=== PATIENT | male | born 1960 | race Caucasian/White ===

== ENCOUNTER 2023-06-08 12:17 | Emergency (ER) | payer OTHER, SELFPAY ==
[2023-06-08] VITALS (11 sets, daily range): BP systolic 167–186; BP diastolic 100–105; PULSE 62–73; RESP 13–18; TEMP 36.6; O2SAT 98–99; BMI 25.7
--- NOTE | 2023-06-08 12:40 | DI.RAD.S_ITS ---
PROCEDURE: XR CHEST 1V INDICATIONS: chest pain TECHNIQUE: One view of the chest was acquired. COMPARISON: None. FINDINGS: Surgical changes and devices: Mitral valve replacement noted Lungs and pleura: Lungs are clear. No pleural effusions or pneumothorax. Mediastinum: Mediastinal contours appear normal. Heart size is normal. Bones and chest wall: No suspicious bony lesions. Overlying soft tissues appear unremarkable. IMPRESSION: No acute cardiopulmonary findings Approved by: Archie Holt M.D. on 06/08/2023 at 12:49
[2023-06-08 13:06] LABS: Add Manual Diff / Slide Review NO; Basophils Absolute Auto 0 /uL (0-100); Basophils Percent Auto 0.4 % (0-2); Eosinophils Absolute Auto 100 /uL (0-450); Eosinophils Percent Auto 1.8 % (2-4); Hematocrit 43.4 % (41-53); Hemoglobin 14.8 g/dL (13.5-17.5); Lymphocytes Absolute Auto 1500 /uL (1100-4500); Lymphocytes Percent Auto 25.9 % (25-40); Mean Corpuscular Hemoglobin 31.3 PG (26-34); Mean Corpuscular Volume 91.9 fL (80-100); Monocytes Absolute Auto 700 /uL (0-900); Monocytes Percent Auto 11.1 % (3-14); Neutrophils Absolute Auto 3600 /uL (1500-7000); Neutrophils Percent Auto 60.8 % (50-75); Platelet Count 147 X10^3/uL (150-400); Red Blood Cell Count 4.72 X10^6/uL (4.5-5.9); Red Cell Distribution Width 13.5 % (11.6-14.8)
[2023-06-08 13:08] LABS: INR 1.1 (0.9-1.3)
[2023-06-08 13:11] LABS: PTT Partial Thromboplastin Tim 29 SECONDS (26-36)
[2023-06-08 13:12] LABS: Alanine Aminotransferase 20 IU/L (<50); Albumin 4.1 g/dL (3.5-5.0); Albumin Globulin Ratio 1.5 (1.0-2.8); Alkaline Phosphatase 54 U/L (38-126); Aspartate Aminotransferase 28 IU/L (17-59); Bilirubin Total 1.1 mg/dL (0.2-1.3); Blood Urea Nitrogen 11 mg/dL (9-20); Calcium 9.3 mg/dL (8.4-10.2); Carbon Dioxide 28 mmol/L (22-32); Chloride 103 mmol/L (98-107); Creatine Kinase 101 U/L (55-170); Estimated Glomerular Filt Rate > 60 mL/min (>60); Globulin 2.8 g/dL (1.7-4.1); Glucose 78 mg/dL (80-110); HEMOLYSIS < 15 (0-50); Lipase 70 U/L (23-300); Potassium 3.9 mmol/L (3.4-5.1); Sodium 138 mmol/L (137-145); Total Protein 6.9 g/dL (6.3-8.2)
[2023-06-08 13:23] LABS: D Dimer 724 ng/ml (<500)
[2023-06-08 13:24] LABS: Troponin I < 0.012 ng/mL (0.01-0.034)
[2023-06-08 13:58] LABS: NT-proBNP (BNP-Adult 18+) 112 pg/mL (<125)
--- NOTE | 2023-06-08 14:21 | ED_ITS ---
HPI - Syncope General Chief Complaint: Syncope Stated Complaint: passed out last night, tightness in chest Time Seen by Provider: 06/08/23 12:19 Source: patient and family Mode of arrival: Ambulatory Limitations: no limitations History of Present Illness HPI narrative: 62-year-old male with history of hypertension and leaky mitral valve repaired 3 days ago. Patient states he has had 4 or 5 separate episodes where he passes out about an hour prior to arrival while flying on an airplane. Typically eats for a few seconds but his states yesterday it was for 1-2 minutes about an hour prior to arrival and is always on descent. Patient's member service representative is aware and they tried to have a Holter monitor or ZIO patch while he was flying but it malfunctioned and were unsuccessful during that is light although during that flight it did not occur. Patient states he always has a sensation like he is going to pass out occurs usually very brief. He states he still felt a little bit off the last day since occurred. He states he just does not feel great. He he states he is got no cold cough or congestion, no fevers or chills. He states no new chest pain. He states it is always a little bit of mild chest discomfort post surgically close to his thoracotomy scar which has been a little bit stronger today. He denies any shortness of breath he denies any syncope in other episodes accept after he had his hip replacement while seated. Patient denies any nausea or vomiting. No diarrhea constipation, no loss of bowel or bladder control. Some chronic mild bilateral lower extremity swelling that he describes as very mild. He wears compression stockings daily for this. Patient states he had his mitral valve repair, he follows with Cardiology regularly and had an echo about 3 months ago. They told him that they are still very small or mild amount of week but that is improved since priors. His only other medication is lisinopril daily. No aspirin or other thinners. Denies other surgeries besides IM nail for his femur fracture. He states he had a framing nail that went through the femur causing it to fracture. Patient states no known drug allergies. No tobacco, has a craft beer once daily, no illicit. Primary care is in [place]. His member service representative is Dr. Le at [facility] in [place]. Patient and flew out here yesterday when this occurred for his daughter's wedding on [place]. Related Data Home Medications Medication Instructions Recorded Confirmed lisinopril 10 mg tablet 10 mg PO DAILY 02/19/22 02/19/22 Allergies Allergy/AdvReac Type Severity Reaction Status Date / Time No Known Drug Allergies Allergy Verified 06/08/23 12:36 Review of Systems Review of Systems ROS Unobtainable: All systems reviewed & are unremarkable except as noted in HPI and below Patient History Social History Smoking Status: Never smoker Smoking Status: Never smoker alcohol intake frequency: 0-2 drinks per day Alcohol type: beer Substance Use Type: marijuana Exam Narrative Exam Narrative: GENERAL: Alert and oriented x three, thin, well-appearing male in no acute distress. Patient had just ambulated back into the room. HEENT: Head normocephalic, atraumatic, EOMI, pupils reactive, face symmetric, moist mucous membranes NECK: Supple, full range of motion CARDIOVASCULAR: Regular rate and rhythm without murmurs, rubs or gallops. No JVD. Trace edema bilaterally. RESPIRATORY: Breath sounds equal bilaterally, no wheezes rales or rhonchi. No tachypnea or accessory muscle use. Speaks in full sentences. ABDOMEN: Soft, nontender. No pulsatile mass or bruit. Normoactive bowel sounds all 4 quadrants. No guarding or rebound, rigidity, no mass : No CVA tenderness EXTREMITIES: Normal range of motion, no clubbing or edema. Neurovascularly intact NEUROLOGICAL: Cranial nerves II through XII grossly intact. Moving all extremities SKIN: Warm, dry, no petechiae, no rashes or lesions. Initial Vital Signs Initial Vital Signs: Vital Signs Temperature 97.9 F 06/08/23 12:29 Pulse Rate 65 06/08/23 12:29 Respiratory Rate 18 06/08/23 12:29 Blood Pressure 167/103 H 06/08/23 12:29 Pulse Oximetry 99 06/08/23 12:29 Oxygen Delivery Method Room Air 06/08/23 12:29 Course Orders Ordered: ED Orders 06/08/23 10:50 Trop I [Troponin I] Stat 06/08/23 12:40 XR chest 1V Stat EKG-12 Lead Stat 06/08/23 12:50 Complete Blood Count AUTO DIFF Stat Comprehensive Metabolic Panel Stat ETOH [Ethanol (ETOH)] Stat Lipase Stat Magnesium Stat PTT Partial Thromboplastin Deven Stat Prothrombin Time INR Stat Troponin & CK Cardiac Panel Stat 06/08/23 13:06 BNP [NT-proBNP (BNP-Adult 18+)] Stat D Dimer Stat 06/08/23 14:33 CT angio chest PE protocol Stat 06/08/23 15:00 Urine Drug Screen, Rapid Stat Discontinued Medications Aspirin (Aspirin 81 Mg Chew Tab) 324 mg PO NOW ONE Stop: 06/08/23 12:41 Last Admin: 06/08/23 13:08 Dose: Not Given Documented By: NR Vital Signs Vital signs: Vital Signs - 8 hr 06/08/23 12:29 06/08/23 13:07 06/08/23 13:30 Temperature 97.9 F Pulse Rate 65 69 69 Respiratory Rate 18 14 Blood Pressure 167/103 H Pulse Oximetry 99 99 98 Oxygen Delivery Method Room Air 06/08/23 14:00 06/08/23 15:00 06/08/23 15:30 Temperature Pulse Rate 73 71 66 Respiratory Rate 13 14 14 Blood Pressure Pulse Oximetry 98 Oxygen Delivery Method Room Air 06/08/23 16:00 06/08/23 16:24 06/08/23 16:25 Temperature Pulse Rate 72 73 Respiratory Rate 15 15 Blood Pressure 180/100 H Pulse Oximetry Oxygen Delivery Method 06/08/23 16:30 06/08/23 16:31 06/08/23 16:31 Temperature Pulse Rate 73 62 Respiratory Rate Blood Pressure 186/105 H Pulse Oximetry 99 99 Oxygen Delivery Method Room Air MDM - Syncope Lab Data 06/08/23 12:50 06/08/23 12:50 Labs: Lab Results 06/08/23 06/08/23 06/08/23 Range/Units 10:50 12:50 12:50 WBC 6.0 (4.5-11.0) X10^3/uL RBC 4.72 (4.5-5.9) X10^6/uL Hgb 14.8 (13.5-17.5) g/dL Hct 43.4 (41-53) % MCV 91.9 (80-100) fL MCH 31.3 (26-34) PG MCHC 34.0 (30-36) % RDW 13.5 (11.6-14.8) % Plt Count 147 L (150-400) X10^3/uL Neut % (Auto) 60.8 (50-75) % Lymph % (Auto) 25.9 (25-40) % [place] % (Auto) 11.1 (3-14) % Eos % (Auto) 1.8 L (2-4) % Baso % (Auto) 0.4 (0-2) % Neut # (Auto) 3600 (2136-5941) /uL Lymph # (Auto) 1500 (3763-6034) /uL [place] # (Auto) 700 (0-900) /uL Eos # (Auto) 100 (0-450) /uL Baso # (Auto) 0 (0-100) /uL PT 13.0 H (10.1-12.7) SECONDS INR 1.1 (0.9-1.3) APTT 29 (26-36) SECONDS D-Dimer (<500) ng/ml Sodium (137-145) mmol/L Potassium (3.4-5.1) mmol/L Chloride (98-107) mmol/L Carbon Dioxide (22-32) mmol/L BUN (9-20) mg/dL Creatinine (0.66-1.25) mg/dL Estimated GFR (>60) mL/min BUN/Creatinine Ratio (6-22) Glucose (80-110) mg/dL Calcium (8.4-10.2) mg/dL Magnesium (1.6-2.3) mg/dL Total Bilirubin (0.2-1.3) mg/dL AST (17-59) IU/L ALT (<50) IU/L Alkaline Phosphatase (38-126) U/L Total Creatine Kinase (55-170) U/L Troponin I < 0.012 (0.01-0.034) ng/mL NT-Pro-B Natriuret Pep (<125) pg/mL Total Protein (6.3-8.2) g/dL Albumin (3.5-5.0) g/dL Globulin (1.7-4.1) g/dL Albumin/Globulin Ratio (1.0-2.8) Lipase (23-300) U/L U Opiates 300ng/mL cut (Negative) Ur Oxycodone Screen (Negative) Urine Methadone Screen (Negative) Ur Barbiturates Screen (Negative) U Tricyclic Antidepress (Negative) Ur Phencyclidine Scrn (Negative) Ur Amphetamines Screen (Negative) U Methamphetamines Scrn (Negative) Ur MDMA Scrn (Ecstasy) (Negative) U Benzodiazepines Scrn (Negative) Urine Cocaine Screen (Negative) U Marijuana (THC) Screen (Negative) Ethyl Alcohol ( - 10) mg/dL 06/08/23 06/08/23 06/08/23 Range/Units 12:50 12:50 13:06 WBC (4.5-11.0) X10^3/uL RBC (4.5-5.9) X10^6/uL Hgb (13.5-17.5) g/dL Hct (41-53) % MCV (80-100) fL MCH (26-34) PG MCHC (30-36) % RDW (11.6-14.8) % Plt Count (150-400) X10^3/uL Neut % (Auto) (50-75) % Lymph % (Auto) (25-40) % [place] % (Auto) (3-14) % Eos % (Auto) (2-4) % Baso % (Auto) (0-2) % Neut # (Auto) (3607-2839) /uL Lymph # (Auto) (2042-2990) /uL [place] # (Auto) (0-900) /uL Eos # (Auto) (0-450) /uL Baso # (Auto) (0-100) /uL PT (10.1-12.7) SECONDS INR (0.9-1.3) APTT (26-36) SECONDS D-Dimer 724 H (<500) ng/ml Sodium 138 (137-145) mmol/L Potassium 3.9 (3.4-5.1) mmol/L Chloride 103 (98-107) mmol/L Carbon Dioxide 28 (22-32) mmol/L BUN 11 (9-20) mg/dL Creatinine 0.61 L (0.66-1.25) mg/dL Estimated GFR > 60 (>60) mL/min BUN/Creatinine Ratio 18.0 (6-22) Glucose 78 L (80-110) mg/dL Calcium 9.3 (8.4-10.2) mg/dL Magnesium 2.0 (1.6-2.3) mg/dL Total Bilirubin 1.1 (0.2-1.3) mg/dL AST 28 (17-59) IU/L ALT 20 (<50) IU/L Alkaline Phosphatase 54 (38-126) U/L Total Creatine Kinase 101 (55-170) U/L Troponin I < 0.012 (0.01-0.034) ng/mL NT-Pro-B Natriuret Pep (<125) pg/mL Total Protein 6.9 (6.3-8.2) g/dL Albumin 4.1 (3.5-5.0) g/dL Globulin 2.8 (1.7-4.1) g/dL Albumin/Globulin Ratio 1.5 (1.0-2.8) Lipase 70 (23-300) U/L U Opiates 300ng/mL cut (Negative) Ur Oxycodone Screen (Negative) Urine Methadone Screen (Negative) Ur Barbiturates Screen (Negative) U Tricyclic Antidepress (Negative) Ur Phencyclidine Scrn (Negative) Ur Amphetamines Screen (Negative) U Methamphetamines Scrn (Negative) Ur MDMA Scrn (Ecstasy) (Negative) U Benzodiazepines Scrn (Negative) Urine Cocaine Screen (Negative) U Marijuana (THC) Screen (Negative) Ethyl Alcohol < 10 ( - 10) mg/dL 06/08/23 06/08/23 Range/Units 13:06 15:00 WBC (4.5-11.0) X10^3/uL RBC (4.5-5.9) X10^6/uL Hgb (13.5-17.5) g/dL Hct (41-53) % MCV (80-100) fL MCH (26-34) PG MCHC (30-36) % RDW (11.6-14.8) % Plt Count (150-400) X10^3/uL Neut % (Auto) (50-75) % Lymph % (Auto) (25-40) % [place] % (Auto) (3-14) % Eos % (Auto) (2-4) % Baso % (Auto) (0-2) % Neut # (Auto) (1430-1052) /uL Lymph # (Auto) (9508-2702) /uL [place] # (Auto) (0-900) /uL Eos # (Auto) (0-450) /uL Baso # (Auto) (0-100) /uL PT (10.1-12.7) SECONDS INR (0.9-1.3) APTT (26-36) SECONDS D-Dimer (<500) ng/ml Sodium (137-145) mmol/L Potassium (3.4-5.1) mmol/L Chloride (98-107) mmol/L Carbon Dioxide (22-32) mmol/L BUN (9-20) mg/dL Creatinine (0.66-1.25) mg/dL Estimated GFR (>60) mL/min BUN/Creatinine Ratio (6-22) Glucose (80-110) mg/dL Calcium (8.4-10.2) mg/dL Magnesium (1.6-2.3) mg/dL Total Bilirubin (0.2-1.3) mg/dL AST (17-59) IU/L ALT (<50) IU/L Alkaline Phosphatase (38-126) U/L Total Creatine Kinase (55-170) U/L Troponin I (0.01-0.034) ng/mL NT-Pro-B Natriuret Pep 112 (<125) pg/mL Total Protein (6.3-8.2) g/dL Albumin (3.5-5.0) g/dL Globulin (1.7-4.1) g/dL Albumin/Globulin Ratio (1.0-2.8) Lipase (23-300) U/L U Opiates 300ng/mL cut Negative (Negative) Ur Oxycodone Screen Negative (Negative) Urine Methadone Screen Negative (Negative) Ur Barbiturates Screen Negative (Negative) U Tricyclic Antidepress Negative (Negative) Ur Phencyclidine Scrn Negative (Negative) Ur Amphetamines Screen Negative (Negative) U Methamphetamines Scrn Negative (Negative) Ur MDMA Scrn (Ecstasy) Negative (Negative) U Benzodiazepines Scrn Negative (Negative) Urine Cocaine Screen Negative (Negative) U Marijuana (THC) Screen Negative (Negative) Ethyl Alcohol ( - 10) mg/dL Imaging Data Chest x-ray: Radiologist's Impression: Close Chest CTA 06/08/23 Chest X-Ray (Signed) Archie Holt - 06/08/[address] [address] XRay Report Signed Patient: Rinku Regan MR#: [id number] : 1960 Acct:[id number] Age/Sex: 62 / M Date of Service: 06/08/23 Loc: ED Accession Number: [id number] ?? Procedure: XR chest 1V Ordering Provider: Brea Birch D.O. PROCEDURE:? XR CHEST 1V ? INDICATIONS:? chest pain ? TECHNIQUE:? One view of the chest was acquired.? ? COMPARISON:? None. ? FINDINGS:? ? Surgical changes and devices:? Mitral valve replacement noted ? Lungs and pleura:? Lungs are clear.? No pleural effusions or pneumothorax.? ? Mediastinum:? Mediastinal contours appear normal.? Heart size is normal.? ? Bones and chest wall:? No suspicious bony lesions.? Overlying soft tissues appear unremarkable.? ? ? IMPRESSION:? No acute cardiopulmonary findings ? ? ? Approved by: Archie Holt M.D. on 06/08/2023 at 12:49? CT scan - chest: Radiologist's Impression: [place] [address] CT Scan Report Signed Patient: Rinku Regan MR#: [id number] : 1960 Acct:[id number] Age/Sex: 62 / M Date of Service: 06/08/23 Loc: ED Accession Number: [id number] ?? Procedure: CT angio chest PE protocol Ordering Provider: Brea Birch D.O. PROCEDURE:? CT ANGIO CHEST PE PROTOCOL ? INDICATIONS:? syncope, happens when he is on descent on airplanes. multi ? TECHNIQUE:? After the administration of intravenous contrast, 2 mm thick sections acquired from the pulmonary apices to the posterior costophrenic angles.? 3-dimensional maximum intensity projection (MIP) coronal and sagittal reformats were then acquired through the thorax.? For radiation dose reduction, the following was used:? automated exposure control, adjustment of mA and/or kV according to patient size.? ? COMPARISON:? None. ? FINDINGS:? Image quality:? Excellent.? ? Pulmonary arteries:? Pulmonary arteries are normal in size, and demonstrate no intraluminal filling defects to suggest central pulmonary embolism.? ? Lungs and pleura:? Lungs are clear.? No pleural effusions or pneumothorax.? Central and peripheral airways are patent.? ? Mediastinum:? Heart size is normal, without pericardial effusion.? No mediastinal or hilar adenopathy.? Thoracic aorta is normal in caliber and enhancement.? Esophagus is normal in caliber without hiatal hernia.? Mitral valve repair noted ? Bones and chest wall:? No suspicious bony lesions.? Ribs and thoracic spine appear intact throughout.? Thyroid gland unremarkable.? No axillary or supraclavicular adenopathy.? ? Abdomen:? Visualized upper abdominal solid organs appear normal in the early arterial phase of enhancement.? ? IMPRESSION:? ? No evidence of pulmonary embolism, aortic dissection or aneurysm. ? No acute cardiopulmonary findings.? Mitral valve repair in good position. ? ? ? Approved by: Archie Holt M.D. on 06/08/2023 at 14:59? ECG Data Attestation: I personally reviewed and interpreted this ECG as follows: Prior ECG tracings: not available for review Interpretation: Sinus rhythm first-degree AV block, possible left atrial enlargement, right bundle-branch block. Rate of 60 6p are 232 QRS of 164 QTC of 440. No acute changes appreciated. No priors for comparison. EKG 2. Sinus rhythm rhythm first-degree AV block, rate of 60 6p are 232, QRS of [address]TC [address] No acute ST changes appreciated 1st to 2nd. MDM Narrative Medical decision making narrative: This is a 62-year-old male with history of prior mitral valve repair 3 years ago and hypertension who has been told he still has some mild leak but has improved his last echo was 3 months ago. He follows regularly with Cardiology. He states almost every time he flies he will have a syncopal episode on descent about a prior hour prior to arrival. He will be seated he will have a sensation that he is going to pass out it is usually brief a few seconds but yesterday was 1-2 minutes. Patient states overall he feels back to normal but still feels a little bit off. He has chronic mild chest discomfort from his old thoracotomy but states it is present today. He states it does not really come and go it is always there he denies any shortness of breath, he has some chronic extremity swelling wears compression socks but states not any worse than normal. He is on lisinopril daily no other anticoagulants or medications states no new changes to medications. CBC, CMP, troponin, BNP, chest x-ray show no acute changes. EKG shows a right bundle-branch block I do not have any priors for comparison. Patient did have dimer was elevated even when age adjusted. CT angio show no acute change, no pulmonary emboli, aortic dissection or aneurysm. Mitral valve repair appears in good position. Lungs are clear. Discussed findings with patient I would recommend he follow up I recommend Holter monitor or ZIO patch and follow-up echo. He does note he had 1 in the past 3 months which was appropriate patient has normal vitals it has been almost 24 hours since his episode with negative workup overall felt appropriate for discharge at this time. Did discuss with patient I would proceed with caution in regards of airline travel. Discharge Plan Departure Patient Disposition: Home Clinical Impression: Syncope Instructions: DI for Syncope in Adults (Fainting) Activity Restrictions/Additional Instructions: Please follow-up with your cardiology team for recheck. Call for an appointment. Your workup today does not show a clear source/cause for your syncopal episodes while riding on airplanes. Make sure you are fully hydrated and avoiding alcohol. I would recommend avoiding flying as this keeps recurring until cleared by your cardiology team. Please return for fevers, new chest pain or shortness of breath, lightheadedness or passing out, increasing swelling of extremities, recurrent episodes of passing out lightheadedness or other new or concerning changes. Prescriptions: No Action lisinopril 10 mg tablet 10 mg PO DAILY Referrals: Miscellaneous,Doctor, [Primary Care Provider] - Stand Alone Forms: Patient Portal/API
--- NOTE | 2023-06-08 14:33 | DI.CT.S_ITS ---
PROCEDURE: CT ANGIO CHEST PE PROTOCOL INDICATIONS: syncope, happens when he is on descent on airplanes. multi TECHNIQUE: After the administration of intravenous contrast, 2 mm thick sections acquired from the pulmonary apices to the posterior costophrenic angles. 3-dimensional maximum intensity projection (MIP) coronal and sagittal reformats were then acquired through the thorax. For radiation dose reduction, the following was used: automated exposure control, adjustment of mA and/or kV according to patient size. COMPARISON: None. FINDINGS: Image quality: Excellent. Pulmonary arteries: Pulmonary arteries are normal in size, and demonstrate no intraluminal filling defects to suggest central pulmonary embolism. Lungs and pleura: Lungs are clear. No pleural effusions or pneumothorax. Central and peripheral airways are patent. Mediastinum: Heart size is normal, without pericardial effusion. No mediastinal or hilar adenopathy. Thoracic aorta is normal in caliber and enhancement. Esophagus is normal in caliber without hiatal hernia. Mitral valve repair noted Bones and chest wall: No suspicious bony lesions. Ribs and thoracic spine appear intact throughout. Thyroid gland unremarkable. No axillary or supraclavicular adenopathy. Abdomen: Visualized upper abdominal solid organs appear normal in the early arterial phase of enhancement. IMPRESSION: No evidence of pulmonary embolism, aortic dissection or aneurysm. No acute cardiopulmonary findings. Mitral valve repair in good position. Approved by: Archie oHlt M.D. on 06/08/2023 at 14:59
[2023-06-08 15:17] LABS: Ethanol (ETOH) < 10 mg/dL
[2023-06-08 15:22] LABS: UR Morphine/Opiate cutoff 300 Negative (Negative); Ur Creatinine Normal (Normal); Ur Specific Gravity Normal (Normal); Urine Amphetamines Negative (Negative); Urine Barbiturates Negative (Negative); Urine Benzodiazepines Negative (Negative); Urine Cocaine Negative (Negative); Urine MDMA Negative (Negative); Urine Methadone Negative (Negative); Urine Methamphetamines Negative (Negative); Urine Oxycodone Negative (Negative); Urine Phencyclidine Negative (Negative); Urine Tetrahydrocannabinol Negative (Negative); Urine Tricyclic Antidepressant Negative (Negative); Urine pH Normal (Normal)
[2023-06-08 15:46] LABS: Troponin I < 0.012 ng/mL (0.01-0.034)
== END 2023-06-08 16:42 | disposition home or self-care (01) ==
PROVIDERS: Emergency Provider Emergency Medicine
DX: R55 Syncope and collapse (principal); R07.9 Chest pain, unspecified; Z95.2 Presence of prosthetic heart valve
CPT/HCPCS: 36415; 71045; 71275; 80053; 80305; 80320; 82550; 83690; 83735; 83880; 84484; 85025; 85379; 85610; 85730; 93005; 93010; 99284; Q9967